=== PATIENT | female | born 1985 | race Caucasian/White ===

== ENCOUNTER → 2020-09-08 | Outpatient (CLI) | payer OTHER | LOC: HEART 5 08:41 | DX: R06.00 Dyspnea, unspecified (principal); M34.9 Systemic sclerosis, unspecified | CPT/HCPCS: 94010 ==

== ENCOUNTER → 2020-09-25 | Outpatient (CLI) | payer OTHER | LOC: ECHO 12:50 | DX: R06.00 Dyspnea, unspecified (principal); M34.9 Systemic sclerosis, unspecified | CPT/HCPCS: ECHO; 93306 ==